=== PATIENT | male | born 1995 ===

== ENCOUNTER 2021-01-12 07:24 | Emergency (ER) | payer SELFPAY ==
[2021-01-12] MEDS ORDERED: ASPIRIN 325 MG TAB PO ONE (07:40)
--- NOTE | 2021-01-12 07:42 | Event Note ---
ED Screening Note Date of service: 01/12/21 Time: 07:41 ED Screening Note: This is a 26-year-old male with no prior medical history complaining of irregular heartbeat that began 2 weeks ago and has worsened in the past 2 days with shortness of breath and increased heartbeat making it difficult for him to sleep. Patient states he was seen at urgent care sometime ago and was prescribed some medications where he got an EKG done that was abnormal. Patient is unsure what medications he was given. This initial assessment/diagnostic orders/clinical plan/treatment(s) is/are subject to change based on patients health status, clinical progression and re- assessment by fellow clinical providers in the ED. Further treatment and workup at subsequent clinical providers discretion. Patient/guardian urged not to elope from the ED as their condition may be serious if not clinically assessed and man aged. Initial orders include: Labs, EKG, chest x-ray
--- NOTE | 2021-01-12 08:44 | XRay Report ---
CHEST 1 VIEW INDICATION: Chest Pain. COMPARISON: None. FINDINGS: Support devices: None. Heart: Normal. Lungs/Pleura: No acute pulmonary or pleural findings. IMPRESSION: 1. No acute findings. Signer Name: Rick De La Crzu MD Signed: 01/12/2021 8:39 AM Workstation Name: [id number]
[2021-01-12 09:40] LABS: Basophils % (Auto) 0.2 % (0.0-1.8); Eosinophils # (Auto) 0.1 K/mm3 (0.0-0.4); Eosinophils % (Auto) 1.1 % (0.0-4.3); Hematocrit 45.9 % (35.5-45.6); Hemoglobin 15.7 gm/dl (11.8-15.2); Lymphocytes # (Auto) 2.1 K/mm3 (1.2-5.4); Lymphocytes % (Auto) 29.3 % (13.4-35.0); Mean Corpuscular HGB Conc 34 % (32-34); Mean Corpuscular Volume 92 fl (84-94); Monocytes # (Auto) 0.6 K/mm3 (0.0-0.8); Monocytes % (Auto) 8.1 % (0.0-7.3); Platelet Count 279 K/mm3 (140-440); Red Blood Count 5.01 M/mm3 (3.65-5.03); Red Cell Distribution Width 12.5 % (13.2-15.2)
[2021-01-12 10:00] LABS: Blood Urea Nitrogen 10 mg/dL (9-20); Calcium 9.3 mg/dL (8.4-10.2); Hemolysis Index 1
[2021-01-12 10:02] LABS: BUN/Creatinine Ratio 17
[2021-01-12 10:11] LABS: INR 1.01 (0.87-1.13)
[2021-01-12 10:12] LABS: Partial Thromboplastin Time 28.5 Sec. (24.2-36.6)
--- NOTE | 2021-01-12 10:36 | Emergency Department Report ---
ED Palpitations HPI - General Chief Complaint: Arrhythmia/Palpitations Stated Complaint: CHEST PAIN/PRESSURE Time Seen by Provider: 01/12/21 10:06 Source: patient Mode of arrival: Ambulatory Limitations: No Limitations - History of Present Illness Initial Comments: Chief complaint: Rapid heartbeat HPI: This is a 25-year-old healthy male without significant past medical history who presents with several weeks of rapid heartbeat. His PCP provided unknown medication to treat symptoms. Patient stopped taking the medication because it did not seem to help. Patient denies chest pain shortness of breath. Patient has intermittent ectopy. At night the palpitations were so severe that he had difficulty sleeping. No recent travel. No sick contacts. Family member did have history of unknown heart disease. No recent lifestyle changes. However he did obtain a new job 6 months ago. He denies tobacco drug or alcohol use. Complaint: rapid heart beat, "heart racing" -: Gradual, week(s) (Several weeks, worse over the last 2 days) Context: occured during rest Associated Symptoms: denies other symptoms - Related Data Allergies Allergy/AdvReac Type Severity Reaction Status Date / Time No Known Allergies Allergy Unverified 01/12/21 07:35 ED Review of Systems ROS: Stated complaint: CHEST PAIN/PRESSURE Other details as noted in HPI Comment: All other systems reviewed and negative Constitutional: denies: fever, malaise Respiratory: denies: cough, shortness of breath Cardiovascular: palpitations. denies: chest pain ED Past Medical Hx - Past Medical History Previous Medical History?: No - Surgical History Past Surgical History?: No - Social History Smoking Status: Never Smoker ED Physical Exam - General Limitations: No Limitations General appearance: alert, in no apparent distress - Head Head exam: Present: atraumatic, normocephalic - Eye Eye exam: Present: normal appearance - ENT ENT exam: Present: mucous membranes moist - Neck Neck exam: Present: normal inspection, full ROM - Respiratory Respiratory exam: Present: normal lung sounds bilaterally. Absent: respiratory distress, wheezes, rales, rhonchi - Cardiovascular Cardiovascular Exam: Present: regular rate, normal rhythm, normal heart sounds. Absent: systolic murmur, diastolic murmur, rubs, gallop - GI/Abdominal GI/Abdominal exam: Present: soft, normal bowel sounds. Absent: distended, tenderness, guarding, rebound - Rectal Rectal exam: Present: deferred - Extremities Exam Extremities exam: Present: normal inspection - Neurological Exam Neurological exam: Present: alert, oriented X3 - Psychiatric Psychiatric exam: Present: normal affect, normal mood - Skin Skin exam: Present: warm, dry, intact, normal color. Absent: rash ED Course Vital Signs 01/12/21 01/12/21 01/12/21 07:28 09:10 09:15 Temperature 98.6 F Pulse Rate 79 56 L 72 Respiratory 20 17 23 Rate Blood Pressure 126/79 117/69 O2 Sat by Pulse 99 98 98 Oximetry ED Medical Decision Making - Lab Data Result diagrams: 01/12/21 08:42 01/12/21 08:42 Laboratory Results - last 24 hr 01/12/21 01/12/21 01/12/21 08:42 08:42 08:42 WBC 7.1 RBC 5.01 Hgb 15.7 H Hct 45.9 H MCV 92 MCH 31 MCHC 34 RDW 12.5 L Plt Count 279 Lymph % (Auto) 29.3 Pepin % (Auto) 8.1 H Eos % (Auto) 1.1 Baso % (Auto) 0.2 Lymph # (Auto) 2.1 Pepin # (Auto) 0.6 Eos # (Auto) 0.1 Baso # (Auto) 0.0 Seg Neutrophils % 61.3 Seg Neutrophils # 4.3 PT 13.1 INR 1.01 APTT 28.5 Sodium 137 Potassium 3.8 Chloride 101.2 Carbon Dioxide 27 Anion Gap 13 BUN 10 Creatinine 0.6 L Estimated GFR > 60 BUN/Creatinine Ratio 17 Glucose 95 Calcium 9.3 Troponin T < 0.010 - EKG Data -: EKG Interpreted by La EKG shows normal: sinus rhythm, axis, intervals, QRS complexes Rate: normal - EKG Data Interpretation: normal EKG 01/12/21 10:35 EKG obtained 0743 EKG interpreted by sd Normal sinus rhythm normal rate normal axis normal intervals no ST elevation no ST-T signs of ischemia normal EKG - Radiology Data Radiology results: report reviewed Chest radiograph: No acute findings according to radiology impression - Medical Decision Making This is a healthy 25-year-old male with no significant past medical history presents with intermittent palpitations rapid heartbeat. Differential diagnosis includes: SVT, ectopic beats such as PVCs, tachycardia related to endocrine disease such as hyperthyroidism. PERC negative for PE. No pneumonia or pneumothorax on chest radiograph: No evidence of pericarditis on EKG. No delta wave to indicate WPW. I recommended follow-up consultation with story writer. Patient may benefit from Holter monitoring. Critical care attestation.: If time is entered above; I have spent that time in minutes in the direct care of this critically ill patient, excluding procedure time. ED Disposition Clinical Impression: Heart palpitations Disposition: DC-01 TO HOME OR SELFCARE Is pt being admited?: No Does the pt Need Aspirin: No Condition: Stable Instructions: Palpitations, [id number] Referrals: DOLORES MARIA MD [Staff Physician] - 3-5 Days Forms: Work/School Release Form(ED)
[2021-01-12 10:58] VITALS: BP 105/71
== END 2021-01-12 11:05 | disposition home or self-care (01) ==
LOC: EDBD → ED 07:24
DX: R00.2 Palpitations (principal)
CPT/HCPCS: 36415; 71045; 80048; 84484; 85025; 85610; 85730; 93005